=== PATIENT | female | born 1980 ===

== ENCOUNTER 2017-09-12 20:10 | Emergency (ER) | payer MEDICAID, OTHER ==
[~2017-09-12] VITALS: Ht 175.3 cm; Wt 74.1 kg
[2017-09-12 20:21] VITALS: BP 137/93
[2017-09-12] MEDS ORDERED: CEFTRIAXONE 1,000 MG ONE (22:06)
[2017-09-12] MEDS ORDERED: CEFTRIAXONE 1,000 MG IM ONE (22:30)
[2017-09-15] MEDS ORDERED: SULF1TAB24 PO (23:09)
[2017-09-15] MEDS ORDERED: CEPH-368 PO (23:09)
[2017-09-15] MEDS ORDERED: NITR100C6 PO (23:09)
== END 2017-09-12 22:54 | disposition home or self-care (01) ==
LOC: ED 22:40
DX: M54.2 Cervicalgia (principal); L03.221 Cellulitis of neck; F11.10 Opioid abuse, uncomplicated; F15.129 Other stimulant abuse with intoxication, unspecified
CPT/HCPCS: 76536; 96372; 99284; J0696

== ENCOUNTER 2018-09-05 11:28 | Inpatient (IN) | payer MEDICAID ==
[~2018-09-05] VITALS: Ht 154.9 cm; Wt 81.8 kg
[~2018-09-05 11:28] MED LIST: CEPH-368 PO; NITR100C6 PO; SULF1TAB24 PO
[2018-09-05] MEDS ORDERED: METH40TA3 PO (12:38)
[2018-09-05 12:47] LABS: MICROSCOPIC INDICATED
[2018-09-05] MEDS ORDERED: OXYTOCIN 30U/ 0.9% NaCL 500ML 500 ML IV ONE (12:48)
[2018-09-05 12:55] LABS: AMPHETAMINE SCREEN, URINE Positive (Negative); BARBITURATE SCREEN, URINE Negative (Negative); BENZODIAZEPINE SCREEN, URINE Negative (Negative); CANNABINOID SCREEN, URINE Negative (Negative); COCAINE SCREEN, URINE Negative (Negative); METHADONE SCREEN, URINE Positive (Negative); OPIATE SCREEN, URINE Positive (Negative); PROTEIN/CREATININE RATIO,URINE 352 (0-200); TOTAL PROTEIN,URINE RANDOM 13 mg/dL (0-12)
[2018-09-05] MEDS ORDERED: FENTANYL PF 100 MCG/2ML IVPush PRN (13:00)
[2018-09-05] MEDS ORDERED: FENTANYL PF 100 MCG/2ML IV PRN ×2 (13:00→17:30)
[2018-09-05] MEDS ORDERED: ONDANSETRON 2MG/ML, 2ML IVPush PRN ×2 (13:00→17:30)
[2018-09-05 13:04] LABS: ALBUMIN 2.2 g/dL (3.4-5.0); ANION GAP 7 mmol/L (5-15); BILIRUBIN, DIRECT 0.4 mg/dL (0.1-0.2); CALCIUM 8.8 mg/dL (8.5-10.1); CHLORIDE 111 mmol/L (98-107)
[2018-09-05 13:07] LABS: ALANINE AMINOTRANSFERASE 67 U/L (12-78); ALKALINE PHOSPHATASE 494 U/L (45-117); BILIRUBIN,TOTAL 0.6 mg/dL (0.2-1.0); CREATININE 1.17 mg/dL (0.55-1.02); TOTAL PROTEIN 7.2 g/dL (6.4-8.2)
[2018-09-05] MEDS ORDERED: PENICILLIN GK 5,000,000 UNITS in DEXTROSE 5% 100 ML IVPB ONE (13:30)
[2018-09-05] MEDS ORDERED: MAGNESIUM SULF. PMX 20GM/500ML 500 ML IV SCH (13:40)
[2018-09-05] MEDS ORDERED: MAGNESIUM SULF. PMX 20GM/500ML 500 ML IV ONE (13:44)
[2018-09-05] MEDS ORDERED: MAGNESIUM SULFATE PMX 4GM/100M 100 ML ONE (13:44)
[2018-09-05 13:51] LABS: BASOPHILS # (AUTO) 0.04 x10^3/uL (0-0.1); BASOPHILS % (AUTO) 1 % (0-1); EOSINOPHILS # (AUTO) 0.05 x10^3/uL (0-0.4); EOSINOPHILS % (AUTO) 1 % (1-7); LYMPHOCYTES # (AUTO) 2.18 x10^3/uL (1-3.4); LYMPHOCYTES % (AUTO) 40 % (22-44); MEAN CORPUSCULAR HEMOGLOBIN 29.2 pg (27.0-34.8); MEAN CORPUSCULAR VOLUME 85.8 fL (80-100); MEAN PLATELET VOLUME 10.8 fL (7.4-10.4); MONOCYTES # (AUTO) 0.39 x10^3/uL (0.2-0.8); MONOCYTES % (AUTO) 7 % (2-9); NEUTROPHILS # (AUTO) 2.84 x10^3/uL (1.8-6.8); NEUTROPHILS % (AUTO) 52 % (42-75); RED BLOOD COUNT 4.63 x10^6/uL (3.82-5.3); RED CELL DISTRIBUTION WIDTH 15.4 % (9.6-15.2)
[2018-09-05 13:52] LABS: PLATELET COUNT 10 x10^3/uL (130-400)
[2018-09-05 13:54] LABS: MD SCAN
[2018-09-05] MEDS ORDERED: MAGNESIUM SULFATE PMX 4GM/100M 100 ML IVPB ONE (14:00)
[2018-09-05] MEDS ORDERED: NEWBORN KIT ONE (14:13)
[2018-09-05] MEDS ORDERED: OXYTOCIN 30U/ 0.9% NaCL 500ML 500 ML ONE (14:13)
[2018-09-05 14:40] VITALS: BP 164/108
[2018-09-05 15:01] VITALS: BP 138/85
[2018-09-05 15:22] LABS: INTERNATIONAL NORMALIZED RATIO 0.86 (0.93-1.1); PROTHROMBIN TIME 9.1 Seconds (9.6-11.5)
[2018-09-05] MEDS: LACTATED RINGERS 1,000 ML IV SCH (15:55)
[2018-09-05] MEDS ORDERED: FENTANYL PF 100 MCG/2ML ONE ×2 (16:36)
[2018-09-05] MEDS ORDERED: OXYTOCIN 10 UNITS/ML, 1ML ONE (16:36)
[2018-09-05] MEDS ORDERED: SODIUM BICARBONATE 1 MEQ/ML, 50ML VIAL ONE (16:36)
[2018-09-05] MEDS ORDERED: CEFAZOLIN 1,000 MG ONE (16:36)
[2018-09-05] MEDS ORDERED: EPHEDRINE 50 MG/ML, 1ML ONE (16:36)
[2018-09-05] MEDS ORDERED: DEXAMETHASONE 4 MG/ML, 1ML ONE (16:36)
[2018-09-05] MEDS ORDERED: PHENYLEPHRINE 10 MG/ML ONE (16:36)
[2018-09-05] MEDS ORDERED: ONDANSETRON 2MG/ML, 2ML ONE (16:36)
[2018-09-05] MEDS ORDERED: KETOROLAC 30 MG/1 ML ONE (16:36)
[2018-09-05] MEDS ORDERED: TRANEXAMIC ACID 100 MG/ML, 10ML ONE (17:00)
[2018-09-05] MEDS ORDERED: TRANEXAMIC ACID 100 MG/ML, 10ML IV ONE (17:00)
[2018-09-05] MEDS ORDERED: EPHEDRINE 50 MG/ML, 1ML IVPush PRN (17:30)
[2018-09-05] MEDS ORDERED: HYDROmorphone 2 MG/ML, 1ML IVPush PRN (17:30)
[2018-09-05] MEDS ORDERED: HYDROcodone/APAP 7.5-325MG/15ML UDC PO PRN (17:30)
[2018-09-05] MEDS ORDERED: OXYcodone 5 MG/5 ML ORAL.SOL UDC PO PRN (17:30)
[2018-09-05] MEDS ORDERED: ALBUTEROL SULFATE 2.5 MG/3 ML NPPB PRN (17:30)
[2018-09-05] MEDS ORDERED: LABETALOL 5MG/ML, 20ML IV PRN (17:30)
[2018-09-05] MEDS ORDERED: TRANEXAMIC ACID 1,000 MG in SODIUM CHLORIDE 0.9% 100 ML IV ONE (17:30)
[2018-09-05] MEDS ORDERED: PROMETHAZINE 25 MG/ML, 1ML IV PRN (17:30)
[2018-09-05] MEDS ORDERED: PENICILLIN GK 2,500,000 UNITS in DEXTROSE 5% 100 ML IVPB SCH (17:30)
[2018-09-05] MEDS ORDERED: hydrALAzine 20 MG/ML, 1ML IV PRN (17:30)
[2018-09-05] MEDS ORDERED: LACTATED RINGERS 1,000 ML IVBOLUS ONE (19:00)
[2018-09-05] MEDS ORDERED: METOCLOPRAMIDE 5 MG/ML, 2ML IV ONE (19:00)
[2018-09-05] MEDS ORDERED: SODIUM CITRATE/CITRIC ACID 30 ML UDC PO ONE (19:00)
[2018-09-05] MEDS ORDERED: METHADONE 10 MG TABLET PO SCH (19:00)
[2018-09-05] MEDS ORDERED: DEXAMETHASONE 40 MG in SODIUM CHLORIDE 0.9% 50 ML IV STA (20:03)
[2018-09-05] MEDS ORDERED: IMMUNE GLOB (GAMUNEX) 10GM/100ML IVPB ONE (20:03)
[2018-09-05 21:02] LABS: ALANINE AMINOTRANSFERASE 67 U/L (12-78); ALBUMIN 2.2 g/dL (3.4-5.0); ANION GAP 11 mmol/L (5-15); CALCIUM 8.1 mg/dL (8.5-10.1); CHLORIDE 107 mmol/L (98-107); CREATININE 1.09 mg/dL (0.55-1.02)
[2018-09-05 21:05] LABS: ALKALINE PHOSPHATASE 472 U/L (45-117); BILIRUBIN,TOTAL 0.9 mg/dL (0.2-1.0)
[2018-09-05 21:45] LABS: BASOPHILS # (AUTO) 0.05 x10^3/uL (0-0.1); BASOPHILS % (AUTO) 1 % (0-1); EOSINOPHILS # (AUTO) 0.13 x10^3/uL (0-0.4); EOSINOPHILS % (AUTO) 2 % (1-7); LYMPHOCYTES # (AUTO) 2.34 x10^3/uL (1-3.4); LYMPHOCYTES % (AUTO) 33 % (22-44); MD MORPH REVIEW ONLY; MEAN CORPUSCULAR HEMOGLOBIN 28.8 pg (27.0-34.8); MEAN CORPUSCULAR HGB CONC 33.5 g/dL (32.4-35.8); MEAN CORPUSCULAR VOLUME 85.9 fL (80-100); MEAN PLATELET VOLUME 10.8 fL (7.4-10.4); MONOCYTES # (AUTO) 0.46 x10^3/uL (0.2-0.8); MONOCYTES % (AUTO) 6 % (2-9); NEUTROPHILS # (AUTO) 4.18 x10^3/uL (1.8-6.8); NEUTROPHILS % (AUTO) 58 % (42-75); RED BLOOD COUNT 4.58 x10^6/uL (3.82-5.3); RED CELL DISTRIBUTION WIDTH 15.4 % (9.6-15.2)
[2018-09-05 21:46] LABS: <PLATELET ESTIMATE> DECREASED; <RBC MORPHOLOGY> NORMAL; PLATELET COUNT 13 x10^3/uL (130-400)
[2018-09-05 21:47] LABS: GIANT PLATELETS 1+; LARGE PLATELETS 1+
[2018-09-05] MEDS ORDERED: AZITHROMYCIN 1,000 MG in SODIUM CHLORIDE 0.9% 250 ML IV STA (22:21)
[2018-09-06] MEDS ORDERED: MAGNESIUM SULF. PMX 20GM/500ML 500 ML IV ONE ×2 (00:06→16:15)
[2018-09-06] MEDS: AMPICILLIN 2 GM in SODIUM CHLORIDE 0.9% 100 ML IV SCH ×3 (02:03→15:20)
[2018-09-06] MEDS ORDERED: D5%-LACTATED RINGERS 1,000 ML IV SCH (05:54)
[2018-09-06 06:19] LABS: ALANINE AMINOTRANSFERASE 57 U/L (12-78); ALBUMIN 1.9 g/dL (3.4-5.0); ANION GAP 10 mmol/L (5-15); BILIRUBIN, DIRECT 0.7 mg/dL (0.1-0.2); CHLORIDE 107 mmol/L (98-107); CREATININE 1.12 mg/dL (0.55-1.02)
[2018-09-06 06:22] LABS: ALKALINE PHOSPHATASE 433 U/L (45-117); BILIRUBIN,TOTAL 0.9 mg/dL (0.2-1.0); TOTAL PROTEIN 8.8 g/dL (6.4-8.2)
[2018-09-06 07:07] LABS: MEAN CORPUSCULAR HEMOGLOBIN 29.2 pg (27.0-34.8); MEAN CORPUSCULAR HGB CONC 34.2 g/dL (32.4-35.8); MEAN CORPUSCULAR VOLUME 85.5 fL (80-100); MEAN PLATELET VOLUME 12.4 fL (7.4-10.4); RED BLOOD COUNT 4.21 x10^6/uL (3.82-5.3); RED CELL DISTRIBUTION WIDTH 14.7 % (9.6-15.2)
[2018-09-06 07:08] LABS: PLATELET COUNT 21 x10^3/uL (130-400)
[2018-09-06 07:09] LABS: MD YES
[2018-09-06 07:14] LABS: NRBC % (MANUAL) 1 % (0-1); SEG#(MANUAL) 4.18 x10^3/uL (1.8-6.8); SEGS% (MANUAL) 76 % (42-75)
[2018-09-06 07:15] LABS: <PLATELET ESTIMATE> DECREASED; <RBC MORPHOLOGY> NORMAL; LYMPH#(MANUAL) 1.27 x10^3/uL (1-3.4); LYMPHS% (MANUAL) 23 % (22-44); MONOS#(MANUAL) 0.06 x10^3/uL (0.3-2.7); MONOS% (MANUAL) 1 % (2-9)
[2018-09-06 07:16] LABS: GIANT PLATELETS 1+; LARGE PLATELETS 1+
[2018-09-06] MEDS ORDERED: IMMUNE GLOBULIN 80 GM in VIAL 0 EACH IV ONE (08:00)
[2018-09-06 08:06] LABS: ABSOLUTE RETICS # 0.115 x10^6/uL (0.5-2.5); RED BLOOD COUNT 4.33 x10^6/uL (3.82-5.3); RETICULOCYTE COUNT % 2.65 % (0.5-1.5)
[2018-09-06] MEDS ORDERED: METHADONE 5 MG TABLET PO SCH (08:30)
[2018-09-06] MEDS ORDERED: METHADONE 10 MG TABLET PO SCH (12:00)
[2018-09-06 12:07] LABS: ALANINE AMINOTRANSFERASE 49 U/L (12-78); ALBUMIN 1.7 g/dL (3.4-5.0); ANION GAP 11 mmol/L (5-15); CALCIUM 6.8 mg/dL (8.5-10.1); CHLORIDE 109 mmol/L (98-107); CREATININE 1.04 mg/dL (0.55-1.02)
[2018-09-06 12:11] LABS: ALKALINE PHOSPHATASE 392 U/L (45-117); BILIRUBIN,TOTAL 0.7 mg/dL (0.2-1.0); TOTAL PROTEIN 7.8 g/dL (6.4-8.2)
[2018-09-06 12:55] LABS: MEAN CORPUSCULAR HEMOGLOBIN 28.3 pg (27.0-34.8); MEAN CORPUSCULAR HGB CONC 33.4 g/dL (32.4-35.8); MEAN CORPUSCULAR VOLUME 84.9 fL (80-100); MEAN PLATELET VOLUME 11.9 fL (7.4-10.4); RED BLOOD COUNT 3.97 x10^6/uL (3.82-5.3)
[2018-09-06 13:02] LABS: PLATELET COUNT 32 x10^3/uL (130-400)
[2018-09-06 13:03] LABS: BASOPHILS # (AUTO) 0.01 x10^3/uL (0-0.1); BASOPHILS % (AUTO) 0 % (0-1); EOSINOPHILS % (AUTO) 0 % (1-7); LYMPHOCYTES # (AUTO) 1.44 x10^3/uL (1-3.4); LYMPHOCYTES % (AUTO) 25 % (22-44); MD SCAN; MONOCYTES # (AUTO) 0.14 x10^3/uL (0.2-0.8); MONOCYTES % (AUTO) 3 % (2-9); NEUTROPHILS % (AUTO) 72 % (42-75)
[2018-09-06 13:07] LABS: INTERNATIONAL NORMALIZED RATIO 0.86 (0.93-1.1); PROTHROMBIN TIME 9.1 Seconds (9.6-11.5)
[2018-09-06] MEDS ORDERED: NEOSTIGMINE 1 MG/ML, 10ML ONE (13:31)
[2018-09-06] MEDS ORDERED: GLYCOPYRROLATE 0.2MG/1ML, 5ML ONE (13:31)
[2018-09-06] MEDS ORDERED: METHADONE 5 MG TABLET PO ONE (14:00)
[2018-09-06] MEDS ORDERED: CALCIUM GLUCONATE 4.6 MEQ in SODIUM CHLORIDE 0.9% 50 ML IV ONE (14:00)
[2018-09-06] MEDS: NICOTINE 14MG/24 HR PATCH.TD24 TD SCH (14:40)
[2018-09-06] MEDS ORDERED: SODIUM CITRATE/CITRIC ACID 30 ML UDC ONE (14:48)
[2018-09-06] MEDS ORDERED: OXYTOCIN 30U/ 0.9% NaCL 500ML 500 ML ONE (14:48)
[2018-09-06] MEDS ORDERED: METOCLOPRAMIDE 5 MG/ML, 2ML ONE (14:48)
[2018-09-06 15:49] LABS: MEAN CORPUSCULAR HEMOGLOBIN 28.8 pg (27.0-34.8); MEAN CORPUSCULAR HGB CONC 33.3 g/dL (32.4-35.8); MEAN CORPUSCULAR VOLUME 86.4 fL (80-100); MEAN PLATELET VOLUME 12.5 fL (7.4-10.4); RED BLOOD COUNT 4.13 x10^6/uL (3.82-5.3)
[2018-09-06 15:51] LABS: MD YES; PLATELET COUNT 46 x10^3/uL (130-400)
[2018-09-06 15:53] LABS: <PLATELET ESTIMATE> DECREASED; <RBC MORPHOLOGY> NORMAL; BAND#(MANUAL) 0.08 x10^3/uL; BANDS%(MANUAL) 1 % (0-7); LYMPH#(MANUAL) 2.24 x10^3/uL (1-3.4); LYMPHS% (MANUAL) 28 % (22-44); MONOS#(MANUAL) 0.88 x10^3/uL (0.3-2.7); MONOS% (MANUAL) 11 % (2-9); SEGS% (MANUAL) 60 % (42-75)
[2018-09-06 15:54] LABS: GIANT PLATELETS 1+; LARGE PLATELETS 1+
[2018-09-06] MEDS ORDERED: GABAPENTIN 300 MG CAPSULE PO SCH (16:00)
[2018-09-06] MEDS ORDERED: LACTATED RINGERS 1,000 ML IVBOLUS ONE (16:00)
[2018-09-06] MEDS ORDERED: MAGNESIUM SULFATE PMX 2GM/50ML 50 ML ONE (16:14)
[2018-09-06] MEDS ORDERED: CEFAZOLIN 1,000 MG ONE (16:15)
[2018-09-06] MEDS ORDERED: FENTANYL PF 100 MCG/2ML ONE (16:15)
[2018-09-06] MEDS ORDERED: OXYTOCIN 10 UNITS/ML, 1ML ONE (16:15)
[2018-09-06] MEDS ORDERED: ONDANSETRON 2MG/ML, 2ML ONE (16:15)
[2018-09-06] MEDS ORDERED: HYDROmorphone 2 MG/ML, 1ML ONE ×2 (16:16→19:45)
[2018-09-06] MEDS ORDERED: morphine SULFATE/PF 0.5 MG/ML, 10ML ONE (16:16)
[2018-09-06] MEDS ORDERED: MIDAZOLAM 1 MG/ML, 2ML ONE (17:00)
[2018-09-06] MEDS ORDERED: MISOPROSTOL 200 MCG TABLET ONE (17:15)
[2018-09-06] MEDS ORDERED: TRANEXAMIC ACID 100 MG/ML, 10ML ONE (17:20)
[2018-09-06] MEDS ORDERED: OXYTOCIN 30U/ 0.9% NaCL 500ML 500 ML IV SCH (17:40)
[2018-09-06] MEDS: LACTATED RINGERS 1,000 ML IV SCH ×3 (17:40→18:02)
[2018-09-06] MEDS ORDERED: MISOPROSTOL 200 MCG TABLET PR ONE (18:00)
[2018-09-06] MEDS ORDERED: CARBOPROST TROMETHAMINE 250 MCG/ML, 1ML IM PRN (18:00)
[2018-09-06] MEDS ORDERED: OXYTOCIN 30U/ 0.9% NaCL 500ML 500 ML IV PRN (18:00)
[2018-09-06] MEDS ORDERED: CALCIUM CARBONATE 500 MG TAB.CHEW PO PRN (18:00)
[2018-09-06] MEDS ORDERED: MISOPROSTOL 200 MCG TABLET PR PRN (18:00)
[2018-09-06] MEDS: ACETAMINOPHEN 325 MG TABLET PO SCH ×2 (18:00→22:00)
[2018-09-06] MEDS ORDERED: DOCUSATE 100 MG CAPSULE PO PRN (18:00)
[2018-09-06] MEDS ORDERED: MEASLES,MUMPS&RUBELLA VACC/PF 0.5 ML SQ-VACC PRN (18:00)
[2018-09-06] MEDS ORDERED: ACETAMINOPHEN 325 MG TABLET PO PRN (18:00)
[2018-09-06] MEDS ORDERED: DIPH,PERTUSS(ACELL),TET VAC/PF NC IM-VACC PRN (18:00)
[2018-09-06] MEDS ORDERED: METOCLOPRAMIDE 5 MG/ML, 2ML IV PRN (18:00)
[2018-09-06] MEDS ORDERED: OXYcodone IR 5MG TABLET PO PRN (18:00)
[2018-09-06] MEDS ORDERED: BISACODYL 10 MG SUPP PR PRN (18:00)
[2018-09-06] MEDS ORDERED: METHYLERGONOVINE 0.2 MG/ML IM PRN (18:00)
[2018-09-06] MEDS ORDERED: ONDANSETRON 2MG/ML, 2ML IV PRN (18:00)
[2018-09-06] MEDS ORDERED: GLYCERIN ADULT SUPP PR PRN (18:00)
[2018-09-06] MEDS ORDERED: SIMETHICONE 80 MG CHEW TAB PO PRN (18:00)
[2018-09-06] MEDS: DEXAMETHASONE 40 MG in SODIUM CHLORIDE 0.9% 50 ML IV SCH (19:56)
[2018-09-06 20:00] VITALS: BP 136/82
[2018-09-06] MEDS ORDERED: DEXAMETHASONE 40 MG in SODIUM CHLORIDE 0.9% 50 ML IV ONE (20:00)
[2018-09-06] MEDS ORDERED: IMMUNE GLOB (GAMUNEX) 10GM/100ML IVPB ONE (20:00)
[2018-09-06] MEDS ORDERED: DEXAMETHASONE 4 MG/ML, 5ML IVPush SCH (20:00)
[2018-09-06 22:06] LABS: MD YES; MEAN CORPUSCULAR HEMOGLOBIN 29.1 pg (27.0-34.8); MEAN CORPUSCULAR HGB CONC 34.1 g/dL (32.4-35.8); MEAN CORPUSCULAR VOLUME 85.5 fL (80-100); MEAN PLATELET VOLUME 11.6 fL (7.4-10.4); PLATELET COUNT 50 x10^3/uL (130-400); RED BLOOD COUNT 3.29 x10^6/uL (3.82-5.3); RED CELL DISTRIBUTION WIDTH 15.2 % (9.6-15.2)
[2018-09-06 22:56] LABS: LYMPH#(MANUAL) 0.96 x10^3/uL (1-3.4); LYMPHS% (MANUAL) 7 % (22-44); MONOS#(MANUAL) 0.27 x10^3/uL (0.3-2.7); MONOS% (MANUAL) 2 % (2-9); SEG#(MANUAL) 12.47 x10^3/uL (1.8-6.8); SEGS% (MANUAL) 91 % (42-75)
[2018-09-06 22:58] LABS: ANISOCYTOSIS 1+; POLYCHROMASIA 1+
[2018-09-06 22:59] LABS: <PLATELET ESTIMATE> DECREASED; GIANT PLATELETS 1+; LARGE PLATELETS 1+
[2018-09-07] VITALS (7 sets, daily range): BP systolic 135–146; BP diastolic 73–86
[2018-09-07] MEDS: LACTATED RINGERS 1,000 ML IV SCH ×6 (01:40→23:40)
[2018-09-07] MEDS: ACETAMINOPHEN 325 MG TABLET PO SCH ×2 (02:00→06:00)
[2018-09-07 06:57] LABS: MEAN CORPUSCULAR HEMOGLOBIN 29.7 pg (27.0-34.8); MEAN CORPUSCULAR HGB CONC 34.5 g/dL (32.4-35.8); MEAN CORPUSCULAR VOLUME 86.1 fL (80-100); MEAN PLATELET VOLUME 12.3 fL (7.4-10.4); PLATELET COUNT 93 x10^3/uL (130-400); RED BLOOD COUNT 2.75 x10^6/uL (3.82-5.3)
[2018-09-07 07:38] LABS: BASOPHILS # (AUTO) 0.01 x10^3/uL (0-0.1); BASOPHILS % (AUTO) 0 % (0-1); EOSINOPHILS % (AUTO) 0 % (1-7); LYMPHOCYTES # (AUTO) 1.69 x10^3/uL (1-3.4); LYMPHOCYTES % (AUTO) 14 % (22-44); MD SCAN; MONOCYTES # (AUTO) 0.63 x10^3/uL (0.2-0.8); MONOCYTES % (AUTO) 5 % (2-9); NEUTROPHILS # (AUTO) 9.64 x10^3/uL (1.8-6.8); NEUTROPHILS % (AUTO) 81 % (42-75)
[2018-09-07] MEDS ORDERED: MAGNESIUM SULF. PMX 20GM/500ML 500 ML IV ONE (08:13)
[2018-09-07] MEDS ORDERED: OXYcodone/APAP 10/325MG TABLET ONE (08:20)
[2018-09-07] MEDS ORDERED: OXYcodone IR 5MG TABLET ONE ×2 (08:22→19:24)
[2018-09-07] MEDS: OXYcodone IR 5MG TABLET PO PRN ×2 (08:29→19:26)
[2018-09-07 09:30] LABS: ALBUMIN 1.4 g/dL (3.4-5.0); ANION GAP 10 mmol/L (5-15); CALCIUM 6.2 mg/dL (8.5-10.1); CHLORIDE 105 mmol/L (98-107)
[2018-09-07 09:32] LABS: ALANINE AMINOTRANSFERASE 34 U/L (12-78); ALKALINE PHOSPHATASE 273 U/L (45-117); BILIRUBIN,TOTAL 0.3 mg/dL (0.2-1.0); CREATININE 1.26 mg/dL (0.55-1.02); TOTAL PROTEIN 8.1 g/dL (6.4-8.2)
[2018-09-07] MEDS: GABAPENTIN 300 MG CAPSULE PO SCH ×4 (09:56→23:44)
[2018-09-07] MEDS ORDERED: SODIUM CITRATE/CITRIC ACID 30 ML UDC PO ONE (12:00)
[2018-09-07] MEDS ORDERED: METOCLOPRAMIDE 5 MG/ML, 2ML IV ONE (12:00)
[2018-09-07 12:08] LABS: MEAN CORPUSCULAR HEMOGLOBIN 28.3 pg (27.0-34.8); MEAN CORPUSCULAR HGB CONC 33.2 g/dL (32.4-35.8); MEAN CORPUSCULAR VOLUME 85.2 fL (80-100); MEAN PLATELET VOLUME 11.5 fL (7.4-10.4); PLATELET COUNT 108 x10^3/uL (130-400); RED CELL DISTRIBUTION WIDTH 15.3 % (9.6-15.2)
[2018-09-07 12:12] LABS: ABSOLUTE RETICS # 0.094 x10^6/uL (0.5-2.5); RETICULOCYTE COUNT % 3.72 % (0.5-1.5)
[2018-09-07 12:24] LABS: RED BLOOD COUNT 2.53 x10^6/uL (3.82-5.3)
[2018-09-07] MEDS: METHADONE 10 MG TABLET PO SCH (12:27)
[2018-09-07 12:50] LABS: RED BLOOD COUNT 2.53 x10^6/uL (3.82-5.3)
[2018-09-07 12:52] LABS: MD MORPH REVIEW ONLY; NEUTROPHILS % (AUTO) 75 % (42-75)
[2018-09-07] MEDS ORDERED: METOCLOPRAMIDE 5 MG/ML, 2ML ONE (12:52)
[2018-09-07] MEDS ORDERED: SODIUM CITRATE/CITRIC ACID 30 ML UDC ONE (12:52)
[2018-09-07 12:53] LABS: ANISOCYTOSIS 1+; BASOPHILS # (AUTO) 0.03 x10^3/uL (0-0.1); BASOPHILS % (AUTO) 0 % (0-1); EOSINOPHILS % (AUTO) 0 % (1-7); LYMPHOCYTES # (AUTO) 2.74 x10^3/uL (1-3.4); LYMPHOCYTES % (AUTO) 20 % (22-44); MONOCYTES # (AUTO) 0.73 x10^3/uL (0.2-0.8); MONOCYTES % (AUTO) 5 % (2-9); NEUTROPHILS # (AUTO) 10.31 x10^3/uL (1.8-6.8); POLYCHROMASIA 1+
[2018-09-07 12:54] LABS: <PLATELET ESTIMATE> DECREASED; GIANT PLATELETS 1+; LARGE PLATELETS 1+
[2018-09-07] MEDS ORDERED: FENTANYL PF 250 MCG/5ML ONE (13:05)
[2018-09-07] MEDS ORDERED: HYDROmorphone 2 MG/ML, 1ML ONE (13:54)
[2018-09-07] MEDS: NICOTINE 14MG/24 HR PATCH.TD24 TD SCH (14:30)
[2018-09-07] MEDS ORDERED: SUGAMMADEX 200 MG/2 ML IVPush ONE ×2 (14:55→14:56)
[2018-09-07] MEDS ORDERED: EPHEDRINE 50 MG/ML, 1ML ONE (15:08)
[2018-09-07] MEDS ORDERED: ONDANSETRON 2MG/ML, 2ML ONE (15:08)
[2018-09-07] MEDS ORDERED: PHENYLEPHRINE 10 MG/ML ONE (15:08)
[2018-09-07] MEDS ORDERED: PROPOFOL 10 MG/ML, 20ML ONE (15:08)
[2018-09-07] MEDS ORDERED: LIDOCAINE-MPF 2% ,5ML ONE (15:08)
[2018-09-07] MEDS ORDERED: WATER-INJECTION,STERILE 10 ML IV ONE (15:08)
[2018-09-07] MEDS ORDERED: ROCURONIUM 10MG/ML,5ML ONE (15:09)
[2018-09-07] MEDS ORDERED: CEFAZOLIN 1,000 MG ONE (15:09)
[2018-09-07] MEDS ORDERED: MAGNESIUM SULF. PMX 20GM/500ML 500 ML IV PRN (16:50)
[2018-09-07] MEDS ORDERED: LABETALOL 5MG/ML, 20ML IVPush PRN (18:30)
[2018-09-07 19:47] LABS: BASOPHILS # (AUTO) 0.04 x10^3/uL (0-0.1); BASOPHILS % (AUTO) 0 % (0-1); EOSINOPHILS % (AUTO) 0 % (1-7); LYMPHOCYTES # (AUTO) 3.29 x10^3/uL (1-3.4); LYMPHOCYTES % (AUTO) 24 % (22-44); MD NO; MEAN CORPUSCULAR HGB CONC 33.8 g/dL (32.4-35.8); MEAN CORPUSCULAR VOLUME 85.8 fL (80-100); MEAN PLATELET VOLUME 10.9 fL (7.4-10.4); MONOCYTES % (AUTO) 5 % (2-9); NEUTROPHILS # (AUTO) 9.47 x10^3/uL (1.8-6.8); NEUTROPHILS % (AUTO) 70 % (42-75); PLATELET COUNT 109 x10^3/uL (130-400); RED BLOOD COUNT 3.12 x10^6/uL (3.82-5.3); RED CELL DISTRIBUTION WIDTH 15.2 % (9.6-15.2)
[2018-09-07] MEDS: PRENATAL VIT/IRON/FA 1 EACH TABLET PO SCH (20:00)
[2018-09-07] MEDS: DEXAMETHASONE 40 MG in SODIUM CHLORIDE 0.9% 50 ML IV SCH (20:15)
[2018-09-08] MEDS: LACTATED RINGERS 1,000 ML IV SCH ×5 (01:40→21:52)
[2018-09-08] MEDS ORDERED: OXYcodone IR 5MG TABLET ONE ×2 (05:55→10:00)
[2018-09-08] MEDS: OXYcodone IR 5MG TABLET PO PRN ×2 (05:58→10:03)
[2018-09-08 06:42] LABS: ALBUMIN 1.4 g/dL (3.4-5.0); ANION GAP 6 mmol/L (5-15); CALCIUM 6.8 mg/dL (8.5-10.1); CHLORIDE 106 mmol/L (98-107)
[2018-09-08 06:48] LABS: ALANINE AMINOTRANSFERASE 36 U/L (12-78); ALKALINE PHOSPHATASE 249 U/L (45-117); BILIRUBIN,TOTAL 0.4 mg/dL (0.2-1.0); CREATININE 1.17 mg/dL (0.55-1.02); TOTAL PROTEIN 7.1 g/dL (6.4-8.2)
[2018-09-08 07:42] LABS: MEAN CORPUSCULAR HEMOGLOBIN 28.8 pg (27.0-34.8); MEAN CORPUSCULAR HGB CONC 33.8 g/dL (32.4-35.8); MEAN CORPUSCULAR VOLUME 85.3 fL (80-100); MEAN PLATELET VOLUME 10.7 fL (7.4-10.4); PLATELET COUNT 132 x10^3/uL (130-400); RED BLOOD COUNT 2.69 x10^6/uL (3.82-5.3); RED CELL DISTRIBUTION WIDTH 15.6 % (9.6-15.2)
[2018-09-08 07:43] LABS: BASOPHILS # (AUTO) 0.02 x10^3/uL (0-0.1); BASOPHILS % (AUTO) 0 % (0-1); EOSINOPHILS % (AUTO) 0 % (1-7); LYMPHOCYTES # (AUTO) 1.59 x10^3/uL (1-3.4); LYMPHOCYTES % (AUTO) 14 % (22-44); MD SCAN; MONOCYTES # (AUTO) 0.26 x10^3/uL (0.2-0.8); MONOCYTES % (AUTO) 2 % (2-9); NEUTROPHILS # (AUTO) 9.88 x10^3/uL (1.8-6.8); NEUTROPHILS % (AUTO) 84 % (42-75)
[2018-09-08] MEDS ORDERED: ACETAMINOPHEN 325 MG TABLET ONE (08:23)
[2018-09-08] MEDS: GABAPENTIN 300 MG CAPSULE PO SCH ×3 (08:28→22:05)
[2018-09-08] MEDS: ACETAMINOPHEN 325 MG TABLET PO SCH ×5 (08:28→22:05)
[2018-09-08 10:55] VITALS: BP 132/71
[2018-09-08] MEDS: METHADONE 10 MG TABLET PO SCH (13:09)
[2018-09-08] MEDS: NICOTINE 14MG/24 HR PATCH.TD24 TD SCH (15:08)
[2018-09-08 16:00] VITALS: BP 124/78
[2018-09-08] MEDS: DEXAMETHASONE 40 MG in SODIUM CHLORIDE 0.9% 50 ML IV SCH (20:41)
[2018-09-08 20:42] VITALS: BP 132/72
[2018-09-09] MEDS: PRENATAL VIT/IRON/FA 1 EACH TABLET PO SCH ×2 (00:13→09:00)
[2018-09-09] MEDS: ACETAMINOPHEN 325 MG TABLET PO SCH ×4 (01:37→08:37)
[2018-09-09] MEDS: LACTATED RINGERS 1,000 ML IV SCH ×3 (01:40→09:40)
[2018-09-09 08:00] VITALS: BP 128/77
[2018-09-09] MEDS: NICOTINE 14MG/24 HR PATCH.TD24 TD SCH (08:37)
[2018-09-09] MEDS: GABAPENTIN 300 MG CAPSULE PO SCH (08:38)
[2018-09-09 09:58] LABS: MD SCAN
[2018-09-09 10:00] LABS: BASOPHILS # (AUTO) 0.02 x10^3/uL (0-0.1); BASOPHILS % (AUTO) 0 % (0-1); EOSINOPHILS % (AUTO) 0 % (1-7); LYMPHOCYTES # (AUTO) 1.97 x10^3/uL (1-3.4); LYMPHOCYTES % (AUTO) 16 % (22-44); MEAN CORPUSCULAR HEMOGLOBIN 28.7 pg (27.0-34.8); MEAN CORPUSCULAR HGB CONC 33.2 g/dL (32.4-35.8); MEAN CORPUSCULAR VOLUME 86.4 fL (80-100); MEAN PLATELET VOLUME 10.9 fL (7.4-10.4); MONOCYTES % (AUTO) 2 % (2-9); NEUTROPHILS # (AUTO) 10.24 x10^3/uL (1.8-6.8); NEUTROPHILS % (AUTO) 82 % (42-75); PLATELET COUNT 157 x10^3/uL (130-400); RED BLOOD COUNT 2.63 x10^6/uL (3.82-5.3); RED CELL DISTRIBUTION WIDTH 15.4 % (9.6-15.2)
[2018-09-09] MEDS ORDERED: DOCU-131 PO (13:08)
[2018-09-09] MEDS ORDERED: ACET500T76 PO (13:12)
[2018-09-09] MEDS ORDERED: FERR325T23 PO (13:13)
[2018-09-09] MEDS: METHADONE 10 MG TABLET PO SCH (13:22)
[2018-09-10 12:21] LABS: ANA SCREEN NEGATIVE (Negative)
== END 2018-09-09 13:25 | disposition home or self-care (01) | DRG 784 ==
LOC: LDOP 11:28 → LDIP 12:55 → 2NW 09-08 10:46
PROVIDERS: ADMIT Obstetrics & Gynecology; ATTEND Obstetrics & Gynecology
PROC: 10D00Z1 Extraction of Products of Conception, Low, Open Approach (ICD-10-PCS; principal; 2018-09-06)
PROC: 0UB70ZZ Excision of Bilateral Fallopian Tubes, Open Approach (ICD-10-PCS; 2018-09-06)
PROC: 30233R1 Transfusion of Nonautologous Platelets into Peripheral Vein, Percutaneous Approach (ICD-10-PCS; 2018-09-06)
PROC: 30233S1 Transfusion of Nonautologous Globulin into Peripheral Vein, Percutaneous Approach (ICD-10-PCS; 2018-09-06)
PROC: 0WCG0ZZ Extirpation of Matter from Peritoneal Cavity, Open Approach (ICD-10-PCS; 2018-09-07)
DX: O42.919 Preterm premature rupture of membranes, unspecified as to length of time between rupture and onset of labor, unspecified trimester (principal); D69.3 Immune thrombocytopenic purpura; O99.12 Other diseases of the blood and blood-forming organs and certain disorders involving the immune mechanism complicating childbirth; M96.840 Postprocedural hematoma of a musculoskeletal structure following a musculoskeletal system procedure; O99.324 Drug use complicating childbirth; O98.42 Viral hepatitis complicating childbirth; Y83.8 Other surgical procedures as the cause of abnormal reaction of the patient, or of later complication, without mention of misadventure at the time of the procedure; Y82.8 Other medical devices associated with adverse incidents; F15.10 Other stimulant abuse, uncomplicated; F17.210 Nicotine dependence, cigarettes, uncomplicated; O14.14 Severe pre-eclampsia complicating childbirth; O32.1XX0 Maternal care for breech presentation, not applicable or unspecified; O36.8130 Decreased fetal movements, third trimester, not applicable or unspecified; O99.334 Smoking (tobacco) complicating childbirth; B19.20 Unspecified viral hepatitis C without hepatic coma; O36.1130 Maternal care for Anti-A sensitization, third trimester, not applicable or unspecified; O43.123 Velamentous insertion of umbilical cord, third trimester; O76 Abnormality in fetal heart rate and rhythm complicating labor and delivery; S30.1XXA Contusion of abdominal wall, initial encounter; O90.2 Hematoma of obstetric wound; Z37.0 Single live birth; Z3A.37 37 weeks gestation of pregnancy; Z87.442 Personal history of urinary calculi; S39.011A Strain of muscle, fascia and tendon of abdomen, initial encounter; X58.XXXA Exposure to other specified factors, initial encounter; Y93.89 Activity, other specified; Y92.238 Other place in hospital as the place of occurrence of the external cause; Y99.8 Other external cause status
CPT/HCPCS: 36415; 85610; 85613; 85670; 85730; 85732; 86146; 86147; 87806; J3490; J7121; 74176; 76805; 80053; 80307; 81001; 82248; 82570; 82803; 83615; 83735; 84156; 84550; 85025; 85045; 85384; 85598; 86038; 86592; 86762; 86803; 86850; 86870; 86900; 86902; 86922; 86923; 87086; 87340; 87491; 87521; 87522; 87591; 88302; 88307; 93005; 93306; G0378; J0290; J0456; J0610; J0690; J1100; J1170; J1561; J1885; J2250; J2274; J2405; J2540; J2704; J2710; J3010; G0475; J2370; J2590; J2765; J3475; J7050; J7120; P9016; P9035

== ENCOUNTER 2019-08-04 20:14 | Emergency (ER) | payer MEDICAID ==
[~2019-08-04] VITALS: Ht 154.9 cm; Wt 74.3 kg
[~2019-08-04 20:14] MED LIST changes: +ACET500T76 PO; +DOCU-131 PO; +FERR325T23 PO; +METH40TA3 PO
[2019-08-04 20:49] VITALS: BP 138/83
--- NOTE | 2019-08-04 21:36 | NUR ---
PATIENT IN ULTRASOUND
[2019-08-04 22:03] LABS: CULTURE INDICATED? YES; MICROSCOPIC INDICATED
[2019-08-04] MEDS ORDERED: LIDOCAINE 1%-EPI 1:100K, 20ML ONE (22:21)
[2019-08-04] MEDS ORDERED: HYDROmorphone 1 MG/ML, 1ML INJ ONE (22:21)
[2019-08-04 22:24] LABS: ALANINE AMINOTRANSFERASE 145 U/L (12-78); ALBUMIN 3.2 g/dL (3.4-5.0); ANION GAP 7 mmol/L (5-15); CALCIUM 8.6 mg/dL (8.5-10.1); CHLORIDE 106 mmol/L (98-107); CREATININE 0.85 mg/dL (0.55-1.02)
[2019-08-04 22:28] LABS: ALKALINE PHOSPHATASE 224 U/L (45-117); BILIRUBIN,TOTAL 0.2 mg/dL (0.2-1.0); TOTAL PROTEIN 8.1 g/dL (6.4-8.2)
[2019-08-04] MEDS ORDERED: HYDROmorphone 1 MG/ML, 1ML INJ IM ONE (22:30)
[2019-08-04] MEDS ORDERED: LIDOCAINE 1%-EPI 1:100K, 20ML INFIL ONE (22:30)
--- NOTE | 2019-08-04 22:33 | NUR ---
THIS IS A 39 YO FEMALE COMING IN FOR RIGHT SIDED ABDOMINAL ABCESS APPEARING "2-3 DAYS AGO", AND FREQUENT "FOUL-SMELLING PEE". A&OX4. PATIENT PLACED ON SPO2 MONITOR. PATIENT MEDICATED PER EMAR, TOLERATED WELL. LIDO AND I&D KIT SET UP AT BEDSIDE
[2019-08-04 22:54] LABS: BASOPHILS # (AUTO) 0.06 x10^3/uL (0-0.1); BASOPHILS % (AUTO) 1 % (0-1); EOSINOPHILS # (AUTO) 0.24 x10^3/uL (0-0.4); EOSINOPHILS % (AUTO) 3 % (1-7); LYMPHOCYTES # (AUTO) 2.07 x10^3/uL (1-3.4); LYMPHOCYTES % (AUTO) 21 % (22-44); MD SCAN; MEAN CORPUSCULAR HEMOGLOBIN 26.9 pg (27.0-34.8); MEAN CORPUSCULAR HGB CONC 32.6 g/dL (32.4-35.8); MEAN CORPUSCULAR VOLUME 82.5 fL (80-100); MEAN PLATELET VOLUME 11.2 fL (7.4-10.4); MONOCYTES # (AUTO) 0.73 x10^3/uL (0.2-0.8); MONOCYTES % (AUTO) 8 % (2-9); NEUTROPHILS # (AUTO) 6.67 x10^3/uL (1.8-6.8); NEUTROPHILS % (AUTO) 68 % (42-75); RED CELL DISTRIBUTION WIDTH 14.2 % (9.6-15.2)
[2019-08-04 22:56] LABS: PLATELET COUNT 29 x10^3/uL (130-400)
--- NOTE | 2019-08-05 00:07 | NUR ---
MD ALYCE TALKING WITH HEME ONC DUE TO PLATELET LEVEL OF 29
[2019-08-05] MEDS ORDERED: CEFDINIR 300 MG CAPSULE PO ONE (00:30)
[2019-08-05] MEDS ORDERED: SULFAMETH./TRIMETHOPRIM DS 800MG/160MG TABLET PO ONE (00:30)
[2019-08-05] MEDS ORDERED: SULFAMETH./TRIMETHOPRIM DS 800MG/160MG TABLET ONE (00:37)
[2019-08-05] MEDS ORDERED: CEFDINIR 300 MG CAPSULE ONE (00:38)
== END 2019-08-05 01:05 | disposition home or self-care (01) ==
LOC: ED 08-05 00:45
DX: L02.211 Cutaneous abscess of abdominal wall (principal); N30.00 Acute cystitis without hematuria; D69.6 Thrombocytopenia, unspecified; L03.311 Cellulitis of abdominal wall; F17.200 Nicotine dependence, unspecified, uncomplicated; Z90.49 Acquired absence of other specified parts of digestive tract
CPT/HCPCS: 36415; 76705; 80053; 81001; 84703; 85025; 87077; 87086; 96372; 99284; J1170; J7512; 87186

== ENCOUNTER 2020-06-02 06:22 | Emergency (ER) | payer MEDICAID ==
[~2020-06-02] VITALS: Ht 154.9 cm; Wt 73.4 kg
[2020-06-02] MEDS ORDERED: LIDOCAINE-MPF 1%, 5ML ONE (06:46)
--- NOTE | 2020-06-02 06:55 | NUR ---
REPORT RECEIVED FROM CHIDI STEVENS. ASSUMING PRIMARY CARE OF PT.
[2020-06-02] MEDS ORDERED: CEPHALEXIN 500 MG CAPSULE PO ONE (07:00)
[2020-06-02] MEDS ORDERED: SULFAMETH./TRIMETHOPRIM DS 800MG/160MG TABLET PO ONE (07:00)
[2020-06-02] MEDS ORDERED: LIDOCAINE-MPF 1%, 5ML INFIL ONE (07:00)
--- NOTE | 2020-06-02 07:15 | NUR ---
PA AT BEDSIDE. RN INFORMED PT THAT A URINE SAMPLE IS NEEDED AFTER PROCEDURE. RN PROVIDED PT WITH URINE COLLECTION CUP AND PROVIDED DIRECTIONS TO BATHROOM. PT TO AMBULATE TO RESTROOM AFTER PROCEDURE IS DONE.
[2020-06-02] MEDS ORDERED: SULFAMETH./TRIMETHOPRIM DS 800MG/160MG TABLET ONE (07:28)
[2020-06-02] MEDS ORDERED: CEPHALEXIN 500 MG CAPSULE ONE (07:28)
--- NOTE | 2020-06-02 07:31 | NUR ---
PO ABX ADMINISTERED PER EMAR.
[2020-06-02] MEDS ORDERED: OXYcodone/APAP 5/325MG TABLET ONE (07:45)
--- NOTE | 2020-06-02 07:46 | NUR ---
PAIN MEDICAITON ADMINISTERED FOR 9/10 R ARM PAIN.
[2020-06-02] MEDS ORDERED: OXYcodone/APAP 5/325MG TABLET PO ONE (08:00)
[2020-06-02 08:05] LABS: MICROSCOPIC INDICATED
[2020-06-02] MEDS ORDERED: L.E.T SOLUTION TP ONE ×3 (08:30→08:49)
--- NOTE | 2020-06-02 08:46 | NUR ---
RN REASSESSED PAIN. PT STATES 6/10 RIGHT ARM PAIN AT THIS TIME.
--- NOTE | 2020-06-02 09:23 | NUR ---
MADELINE SMITH TO REASSESS PT.
--- NOTE | 2020-06-02 09:29 | NUR ---
PT BEING DISCHARGED HOME IN A STABLE CONDITION. DC INSTRUCTIONS DISCUSSED WITH PT. PT VERBALIZED UNDERSTANDING. ADDTIONAL WOUND DRESSING SUPPLIES PROVIDED TO PT. PT GETTING SELF DRESSED. RN TO WALK PT TO DC DESK WHEN READY.
[2020-06-02 09:30] VITALS: BP 136/86
== END 2020-06-02 09:31 | disposition home or self-care (01) ==
LOC: ED 08:19
DX: L03.113 Cellulitis of right upper limb (principal); N39.0 Urinary tract infection, site not specified; M25.531 Pain in right wrist
CPT/HCPCS: 10060; 81001; 87077; 87086; 87147; 87186; 99284